=== PATIENT | female | born 1990 | race African-American/Black ===

== ENCOUNTER 2016-11-22 21:57 | Emergency (ER) | payer OTHER ==
[~2016-11-22 21:57] MED LIST: DICLEGIS DR 101 EACH PO; KETOROLAC TROME10 M1 PO; PERCOCET 5-3251 EACH PO; TYLENOL WITH C1 EACH PO; VITAFOL ULTRA1 EACH PO
[2016-11-22 22:02] VITALS: BP 122/73
--- NOTE | 2016-11-22 23:01 | ED UPPER/LOWER EXTREMITY COMPL ---
History of Present Illness General Chief Complaint: Lower Extremity Problems Stated Complaint: BILATERAL LEG PAIN-8 MONTHS PREG Source: patient Exam Limitations: no limitations Allergies Coded Allergies: venom-honey bee (BEE VENOM (HONEY BEE)) (SWELLING AT STINGER SITE 03/09/16) Reconcile Medications Doxylamine/Pyridoxine HCl (Diclegis Dr 10-10 MG Tablet) 10 MG-10 MG TABLET.DR 2 TAB PO QHS PRN N/V (Reported) Iron Carb,Gl/FA/B12/C/Docusate (Ferralet 90 Tablet) 90 MG-1 MG-12 MCG-120 MG-50 MG TABLET 1 TAB PO DAILY PPRENATAL (Reported) Pnv#67/Iron Ps/FA Cmb#1/Dha (Vitafol Ultra Softgel) 29 MG IRON-1 MG-200 MG CAPSULE 1 CAP PO DAILY (Reported) Triage Note: PER PT BILAT THIGH PAIN X 24 HRS CANT SLEEP FEELS LIKE MUSCLE PAIN, Triage Nurses Notes Reviewed? yes : Yes Patient currently breastfeeds: No HPI: This patient is a 26-year-old female who is approximately 8 months gestation who presented to the emergency department today for 1 day of bilateral thigh pain. She reported, "it feels like it is muscular." She reported the pain gets up to an 8 out of 10, is throbbing, and nonradiating. She denied any back pain or calf pain. She denied any unilateral leg swelling. The patient denied any difficulty breathing or chest pain. Her PAYROLL MACHINE OPERATOR is Dr. Mendez. The patient did not try taking any medication for her pain prior to arrival in the emergency department. (RAQUEL HOLBROOK,YOLANDA) Vital Signs & Intake/Output Vital Signs & Intake/Output Vital Signs Date Time Temp Pulse Resp B/P Pulse O2 O2 Flow FiO2 Ox Delivery Rate 11/22 2202 93 18 122/73 99 ED Intake and Output 11/23 0000 11/22 1200 Intake Total 50 Output Total Balance 50 Intake, IV 50 Past History Travel History Traveled to [place] past 21 day No Medical History Any Pertinent Medical History? 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 No (YOLANDA GARCÍA PA-C) Review of Systems Review of Systems Constitutional: Reports: no symptoms. EENTM: Reports: no symptoms. Respiratory: Reports: no symptoms. Cardiovascular: Reports: no symptoms. Gastrointestinal/Abdominal: Reports: no symptoms. Genitourinary: Reports: no symptoms. Musculoskeletal: Reports: see HPI. Neurological/Psychological: Reports: no symptoms. All Other Systems: Reviewed and Negative (YOLANDA GARCÍA PA-C) Physical Exam Physical Exam General Appearance: well developed/nourished, no apparent distress, alert, awake Comments: Well-developed well-nourished person in no acute distress HEENT: Normal EENT exam, head normocephalic, moist mucous membranes Neck: Supple Back: No CVA tenderness. Normal gait Respiratory: No respiratory distress. Speaking in full sentences Abdomen: Gravid with palpable uterus just below the xiphoid process. Nontender Bilateral lower extremities: No bony or muscular deformities appreciated. No edema. No calf tenderness. Negative Homans sign. Dorsalis pedis and posterior tibialis pulses 2+ and strong. Tenderness to palpation over the quadriceps bilaterally Neuro: Alert oriented x3, cranial nerves II through XII grossly intact. Skin: No appreciable rash on exposed skin, skin is warm and dry. Psych: Mood and affect is normal (YOLANDA GARCÍA PA-C) Progress Differential Diagnosis: arterial insufficiency, cellulitis, compartment syndrome , contusion, dislocation, DVT, septic arthritis, sprain, tendon injury, MUSCLE STRAIN Plan of Care: Current Medications Sig/Giovana Start time Last Medication Dose Stop Time Status Admin Acetaminophen 1,000 MG ONCE ONE 11/22 2300 UNVr (Ofirmev) 11/22 2314 N/A 1 UNIT (No Carrier) Departure Departure Disposition: HOME OR SELF CARE Condition: Stable Clinical Impression Primary Impression: Musculoskeletal pain Referrals: JODIE VALDEZ,BRIDGER Puente (PCP/Family) Additional Instructions: Please take [id number] Tylenol as needed for pain. Rest. Gentle stretching. Apply ice or heat to the affected areas as needed. Please follow- up with your PAYROLL MACHINE OPERATOR. Return for any worsening symptoms or concerns. Departure Forms: Customer Survey General Discharge Information (YOLANDA GARCÍA PA-C) PA/WEARING APPAREL SHAKER Co-Sign Statement Statement: ED Attending supervision documentation- [] I saw and evaluated the patient. I have also reviewed all the pertinent lab results and diagnostic results. I agree with the findings and the plan of care as documented in the PA's/WEARING APPAREL SHAKER's documentation. [X] I have reviewed the ED Record and agree with the PA's/WEARING APPAREL SHAKER's documentation. [] Additions or exceptions (if any) to the PAs/WEARING APPAREL SHAKER's note and plan are summarized below: [] (JORI VALDEZ,REMA Rush)
[2016-11-22] MEDS ORDERED: FERRALET 90 TA1 EACH PO (23:30)
== END 2016-11-22 23:31 ==
LOC: ERH 21:57
DX: O26.93 Pregnancy related conditions, unspecified, third trimester (principal); M79.651 Pain in right thigh; M79.652 Pain in left thigh
CPT/HCPCS: 96374; J0131

== ENCOUNTER 2016-12-29 08:44 | Inpatient (IN) | payer OTHER ==
[~2016-12-29] VITALS: Ht 172.7 cm; Wt 68.0 kg
[~2016-12-29 08:44] MED LIST changes: +FERRALET 90 TA1 EACH PO
[2016-12-29 09:57] LABS: ABSOLUTE BASOPHIL COUNT 0 /CUMM (0.0-0.2); ABSOLUTE EOSINOPHIL COUNT 0.1 /CUMM (0.0-0.7); ABSOLUTE GRANULOCYTE CT 5.6 /CUMM (1.4-6.5); ABSOLUTE LYMPH COUNT 1.4 /CUMM (1.2-3.4); ABSOLUTE MONOCYTE COUNT 0.5 /CUMM (0.10-0.60); BASOPHIL % 0.4 % (0.0-2.0); EOSINOPHIL % 1.2 % (0-5); GRANULOCYTE % 73.4 % (42.2-75.2); HEMATOCRIT 35.9 % (37-47); MEAN CORPUSCULAR HGB 32.3 PG (27.0-31.0); MEAN CORPUSCULAR HGB CONC 33.3 G/DL (33.0-37.0); MEAN CORPUSCULAR VOLUME 96.9 FL (81.0-99.0); MEAN PLATELET VOLUME 9.6 FL (7.4-10.4); PLATELET COUNT 197 /CUMM (130-400); RBC DISTRIBUTION WIDTH 14.1 % (11.5-14.5); WHITE BLOOD CELL COUNT 7.6 /CUMM (4.8-10.8)
--- NOTE | 2016-12-29 11:57 | PN- Obstetrical ---
Subjective Subjective: NO COMPLAINTS Objective Last 24 Hrs of Vital Signs/I&O Intake & Output 12/29 1600 04/ 0800 04/ 0000 Intake Total Output Total Balance Patient 150 lb Weight Physical Exam: ABD 3100 Obstetric Exam Dilation (cm): 2 Effacement (%): 90 Station: 0 Membranes: AROM Fluid: clear Multiple Gestation? No Contractions: Q 5 Assessment/Plan Assessment/Plan ASSESS SGA PLAN CONT PITOCIN
--- NOTE | 2016-12-29 14:39 | PN- Obstetrical ---
Subjective Subjective: C/O CTX Objective Last 24 Hrs of Vital Signs/I&O Intake & Output 12/29 1600 12/29 0800 12/29 0000 Intake Total Output Total Balance Patient 150 lb Weight Physical Exam: PE PLEASANT BF IN NAD ABD 3100 EFW Obstetric Exam Dilation (cm): 3 Effacement (%): 90 Station: 0 Membranes: AROM Fluid: light meconium Multiple Gestation? No Contractions: Q 2 MINUTES Assessment/Plan Assessment/Plan ASSESS SGA PLAN [facility] ATTEMPTED
[2016-12-30] MEDS ORDERED: PERCOCET 5-3251 EACH PO (09:40)
[2016-12-30] MEDS ORDERED: IBUPROFEN800 M1 PO (09:40)
[2016-12-30 10:01] LABS: ABSOLUTE BASOPHIL COUNT 0 /CUMM (0.0-0.2); ABSOLUTE EOSINOPHIL COUNT 0 /CUMM (0.0-0.7); ABSOLUTE GRANULOCYTE CT 11.5 /CUMM (1.4-6.5); BASOPHIL % 0.1 % (0.0-2.0); EOSINOPHIL % 0.1 % (0-5)
[2016-12-30 10:12] LABS: ABSOLUTE LYMPH COUNT 1.1 /CUMM (1.2-3.4); ABSOLUTE MONOCYTE COUNT 0.7 /CUMM (0.10-0.60); HEMATOCRIT 32.3 % (37-47); MEAN CORPUSCULAR HGB 32.4 PG (27.0-31.0); MEAN CORPUSCULAR VOLUME 98.5 FL (81.0-99.0); MEAN PLATELET VOLUME 9.7 FL (7.4-10.4); PLATELET COUNT 165 /CUMM (130-400); RBC DISTRIBUTION WIDTH 14.1 % (11.5-14.5); RED BLOOD CELL CT 3.28 /CUMM (4.20-5.40)
[2016-12-30 10:13] LABS: WHITE BLOOD CELL COUNT 13.3 /CUMM (4.8-10.8)
[2016-12-30 10:32] LABS: GRANULOCYTE % 86.3 % (42.2-75.2)
--- NOTE | 2016-12-31 06:42 | PN- Post Delivery/GYN ---
Subjective Subjective: Overall patient doing well. Pain is moderate, however well controlled with PO pain meds. Patient is ambulating well. Voiding well. Passing gas, no BM. Eating well with no N/V. Lochia decreasing per pt. Breast and bottle feeding. Review of Systems: per above Objective Last 24 Hrs of Vital Signs/I&O 97.6 76 17 106/68 98 Physical Exam: NAD RRR S1 and S2 CTAB Abd - minimal tenderness to palpation, good BS Incision - C/D/I, sarah in place. Current Medications: Current Medications Sig/Giovana Start time Last Medication Dose Route Stop Time Status Admin Bisacodyl 10 MG DAILY NEEDED PRN 12/29 1800 AC MA Butorphanol Tartrate 1 MG Q4P PRN 12/29 1445 DC 12/29 IM 1445 Butorphanol Tartrate 1 MG Q4P PRN 12/29 1445 DC 12/29 IV 1441 Diphenhydramine HCl 25 MG Q6P PRN 12/29 1800 AC 12/30 IV 01/01 1801 0408 Docusate Sodium 100 MG .STK-MED ONE 12/30 2130 DC PO 12/30 2131 Docusate Sodium 100 MG AT BEDTIME PRN 12/29 1800 AC 12/30 PO 2137 Enoxaparin Sodium 40 MG DAILY 12/30 1000 DC SC Enoxaparin Sodium 40 MG DAILY 12/30 1000 DC 12/30 SC 0744 Hydroxyzine HCl 50 MG AT BEDTIME NEED.. 12/30 0000 AC PO 01/02 0001 Ibuprofen 800 MG .STK-MED ONE 12/30 2129 DC PO 12/30 2130 Ibuprofen 800 MG .STK-MED ONE 12/30 1411 DC PO 12/30 1412 Ibuprofen 800 MG Q6P PRN 12/29 1800 AC 12/30 PO 2137 Ketorolac 30 MG .STK-MED ONE 12/30 0713 DC Tromethamine IM 12/30 0714 Ketorolac 30 MG Q6P PRN 12/29 1800 DC 12/30 Tromethamine IV 12/30 1759 0738 Lactated Ringer's 1,000 ML Q8H 12/29 1800 AC IV Lactated Ringer's 1,000 ML Q8H 12/29 1000 DC 12/30 IV 0400 Magnesium Hydroxide 30 ML DAILY NEEDED PRN 12/29 1800 AC PO 01/01 1801 Measles/Mumps/ 1 ANDRIA ONE ONE 12/30 0945 DC Rubella Vaccine Live SC 12/30 0946 Metoclopramide HCl 10 MG Q6P PRN 12/29 2330 AC IV Naloxone HCl 0.2 MG DAILY NEEDED PRN 12/29 2330 AC IV Oxycodone/ 1 TAB Q4P PRN 12/29 1800 AC Acetaminophen PO Oxycodone/ 2 TAB Q4P PRN 12/29 1800 AC 12/31 Acetaminophen PO 0318 Oxytocin 30 UNITS PER PROTOCL 12/29 1000 DC 12/29 Lactated Ringer's 500 ML IV 0945 Senna 187 MG AT BEDTIME NEED.. 12/29 1800 AC PO Last 24 Hrs of Labs/Jairon: Laboratory Tests 12/30/16 0806: CBC w Diff NO MAN DIFF REQ, RBC 3.28 L, MCV 98.5, MCH 32.4 H, RDW 14.1, MPV 9.7, Gran % 86.3 H, Lymphocytes % 8.3 L, Monocytes % 5.2, Eosinophils % 0.1, Basophils % 0.1, Absolute Granulocytes 11.5 H, Absolute Lymphocytes 1.1 L, Absolute Monocytes 0.7 H, Absolute Eosinophils 0, Absolute Basophils 0, PUBS MCHC 33.0 Assessment/Plan Assessment/Plan 26 yo female POD#2 s/p LTCS for failed induction Overall doing well Continue pain control with PO meds PRN Regular diet Encourage ambulation Continue to encourage breast feeding. Continue Lovenox and bowel regimen Attending MD Review Statement Attending Statement Attending MD Statement: examined this patient, discussed with nursing
--- NOTE | 2017-01-01 07:36 | PN- Post Delivery/GYN ---
Subjective Subjective: Overall patient doing well. Pain is improving and well controlled with PO pain meds. Patient is ambulating well. Voiding well. Passing gas, no BM. Eating well with no N/V. Lochia decreasing per pt. Breast and bottle feeding. Review of Systems: per above Objective Last 24 Hrs of Vital Signs/I&O 98.6 64 20 100/66 98% Physical Exam: NAD RRR S1 and S@ CTAB Abd: Mild TTP, good BS Incision: C/D/I With sarah in place Ext: NT, minimal edema Current Medications: Current Medications Sig/Giovana Start time Last Medication Dose Route Stop Time Status Admin Bisacodyl 10 MG DAILY NEEDED PRN 12/29 1800 AC WY Diphenhydramine HCl 25 MG Q6P PRN 12/29 1800 AC 12/30 IV 01/01 1801 0408 Docusate Sodium 100 MG .STK-MED ONE 12/31 2004 DC PO 12/31 2006 Docusate Sodium 100 MG AT BEDTIME PRN 12/29 1800 AC 12/31 PO 2012 Hydroxyzine HCl 50 MG AT BEDTIME NEED.. 12/30 0000 AC PO 01/02 0001 Ibuprofen 800 MG .STK-MED ONE 12/31 2004 DC PO 12/31 2006 Ibuprofen 800 MG .STK-MED ONE 12/31 1405 DC PO 12/31 1406 Ibuprofen 800 MG .STK-MED ONE 12/31 0802 DC PO 12/31 0803 Ibuprofen 800 MG Q6P PRN 12/29 1800 AC 01/01 PO 0142 Lactated Ringer's 1,000 ML Q8H 12/29 1800 AC IV Magnesium Hydroxide 30 ML DAILY NEEDED PRN 12/29 1800 AC PO 01/01 1801 Metoclopramide HCl 10 MG Q6P PRN 12/29 2330 AC IV Naloxone HCl 0.2 MG DAILY NEEDED PRN 12/29 2330 AC IV Oxycodone/ 1 TAB Q4P PRN 12/29 1800 AC Acetaminophen PO Oxycodone/ 2 TAB Q4P PRN 12/29 1800 AC 01/01 Acetaminophen PO 0142 Senna 187 MG AT BEDTIME NEED.. 12/29 1800 AC PO Assessment/Plan Assessment/Plan 26 yo female POD#3 s/p LTCS for failed induction Overall doing well Continue pain control with PO meds PRN Regular diet Encourage ambulation Continue to encourage breast feeding supplement with bottle as needed Continue Lovenox and bowel regimen Plan for discharge home today. Patient given precautions and voiced understanding. Attending MD Review Statement Attending Statement Attending MD Statement: examined this patient, discussed with family, discussed with nursing
[2017-01-01] MEDS ORDERED: DOCUSATE SODIU100 M3 PO (07:42)
[2017-01-01] MEDS ORDERED: IBUPROFEN800 M1 PO (07:49)
[2017-01-01] MEDS ORDERED: PERCOCET 5-3251 EACH PO (07:49)
--- NOTE | 2017-01-02 17:57 | Operative Report ---
Operative/Inv Procedure Report Surgery Date: 12/29/16 Name of Procedure: High transverse section via Pfannenstiel skin incision Pre-Operative Diagnosis: Nonreassuring heart tracing small for gestational age failed induction Post-Operative Diagnosis: Same in transverse lie Estimated Blood Loss: 500 Surgeon/Crystal Calibrator: BARRETT VALDEZ,MJ [facility] Anesthesia: block Operative/Procedure Note Note: Patient was taken the operating placed on position after adequate placement of a [place] catheter sterilely I and testing for a spinal narcotic the patient's abdomen was prepped and draped so fashion skin was tested once again to be found to be adequate for surgery through a Pfannenstiel skin incision 2 fingerbreadths of symptoms pubis in the midline skin was cut was carried down to rectus fascia which cut in curvilinear fashion I direction peritoneal cavity entered high into the abdomen at this point the low blade the Kell was placed lower in the incision the lower uterine segment was not developed the was not in transverse position I the bladder flap was developed a transverse incision was made using a knife the uterus was entered with a knife was dissected bluntly as well as sharply using the bandage scissors at this point a version produced a vertex delivered over the incisional on since removed from the field cord was doubly clamped and cut infant was handed chief hospital administrator for resuscitation since was delivered manually noted to be intact was wiped clean with 2 wet dry laps insurance free of adherent membranes was oversewn running locking suture was indicated interrupted [id number] hemostasis uses returned to the abdominal cavity was hemostatic intravenous intramyometrial Pitocin Hemabate had been used for uterine contractility the peritoneum was reapproximated 0 the fascia was reapproximated to continue sutures 1 skin was reapproximated
--- NOTE | 2017-01-12 11:59 | Surgical Discharge Summary ---
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 Maori Review of Systems: -13 point review of systems as stated in the [facility] Hospital Course Course Attending Physician: MJ HYDE MD Primary Care Physician: BRIDGER FELICIANO MD Hospital Course: 26-year-old 4 para 030 at 38 weeks' gestation with a small for gestational age presents for induction of labor secondary to non-patient has been followed in my office and had adequate NSTs but has had a lack of growth in the last 2 week Allergies: Coded Allergies: venom-honey bee (BEE VENOM (HONEY BEE)) (SWELLING AT STINGER SITE 03/09/16) Disposition Summary Disposition Principal Diagnosis: Small for gestational age infant Additional Diagnosis: section Discharge Disposition: home or self care Discharge Instructions General Discharge Information Code Status: Full Code Patient's Diet: Regular Patient's Activity: Pelvic rest low-grade lifting 15 pounds for 6 weeks pelvic rest for 6 weeks no driving for 2 weeks Follow-Up Instructions/Appts: return visit in one week for removal of sarah and a visit in my office in 2 weeks Medications at Discharge Discharge Medications: Stop taking the following medications: Doxylamine/Pyridoxine HCl (Ananth Bennett 10-10 MG Tablet) 10 MG-10 MG TABLET. ORAL TAKE AT BEDTIME as needed for N/V Qty = 40 Continue taking these medications: Pnv#67/Iron Ps/FA Cmb#1/Dha (Vitafol Ultra Softgel) 29 MG IRON-1 MG-200 MG CAPSULE 1 Capsule ORAL DAILY Qty = 30 Comments: PER PT Iron Carb,Gl/FA/B12/C/Docusate (Ferralet 90 Tablet) 90 MG-1 MG-12 MCG-120 MG-50 MG TABLET 1 Tablet ORAL DAILY Qty = 30 Start taking the following new medications: Docusate Sodium (Docusate Sodium) 100 MG CAPSULE 100 Milligram ORAL DAILY as needed for STOOL SOFTENER Qty = 45 No Refills Comments: Last Taken:01/01/17 Time:1937 Ibuprofen (Ibuprofen) 800 MG TABLET 800 Milligram ORAL EVERY SIX HOURS NEEDED as needed for UTERINE CRAMPING Qty = 30 No Refills Comments: Last Taken:01/02/17 Time:939 Oxycodone HCl/Acetaminophen (Percocet 5-325 MG Tablet) 5 MG-325 MG TABLET 1 Tablet ORAL EVERY 4 HOURS NEEDED as needed for PAIN SCALE 4-6 (MODERATE ) Qty = 30 No Refills Comments: Last Taken:01/02/17 Time:0016
== END 2017-01-02 10:45 | DRG 540 ==
LOC: GNO 08:44
PROVIDERS: ADMIT Specialist
PROC: 10D00Z1 Extraction of Products of Conception, Low, Open Approach (ICD-10-PCS; principal; 2016-12-29)
PROC: 3E033VJ Introduction of Other Hormone into Peripheral Vein, Percutaneous Approach (ICD-10-PCS; 2016-12-29)
DX: O32.2XX0 Maternal care for transverse and oblique lie, not applicable or unspecified (principal); O61.0 Failed medical induction of labor; O36.5930 Maternal care for other known or suspected poor fetal growth, third trimester, not applicable or unspecified; O76 Abnormality in fetal heart rate and rhythm complicating labor and delivery; Z3A.39 39 weeks gestation of pregnancy; Z37.0 Single live birth
CPT/HCPCS: GNOS; 81001; 87086; 88307; J0595; J0690; J1200; J1650; J1885; J7120

== ENCOUNTER 2017-01-07 11:08 | Emergency (ER) | payer OTHER ==
[~2017-01-07] VITALS: Ht 172.7 cm; Wt 68.0 kg
[~2017-01-07 11:08] MED LIST changes: +DOCUSATE SODIU100 M3 PO; +IBUPROFEN800 M1 PO
--- NOTE | 2017-01-07 11:31 | ED HEADACHE COMPLAINT ---
History of Present Illness General Chief Complaint: Headache Stated Complaint: HEADACHE Source: patient Exam Limitations: no limitations Vital Signs & Intake/Output Vital Signs & Intake/Output Vital Signs Date Time Temp Pulse Resp B/P Pulse O2 O2 Flow FiO2 Ox Delivery Rate 01/07 1459 98.0 60 20 148/88 98 Room Air Room Air 01/07 1116 98.6 69 20 136/80 98 Room Air Allergies Coded Allergies: venom-honey bee (BEE VENOM (HONEY BEE)) (SWELLING AT STINGER SITE 03/09/16) Reconcile Medications Docusate Sodium 100 MG CAPSULE 100 MG PO DAILY PRN STOOL SOFTENER Ibuprofen 800 MG TABLET 800 MG PO Q6P PRN UTERINE CRAMPING Iron Carb,Gl/FA/B12/C/Docusate (Ferralet 90 Tablet) 90 MG-1 MG-12 MCG-120 MG-50 MG TABLET 1 TAB PO DAILY PPRENATAL (Reported) Oxycodone HCl/Acetaminophen (Percocet 5-325 MG Tablet) 5 MG-325 MG TABLET 1 TAB PO Q4P PRN PAIN SCALE 4-6 (MODERATE) Pnv#67/Iron Ps/FA Cmb#1/Dha (Vitafol Ultra Softgel) 29 MG IRON-1 MG-200 MG CAPSULE 1 CAP PO DAILY (Reported) Triage Note: PT TO ED C/O HEADACHE SINCE YESTERDAY. PT IS S/P 12/29/16 AT [facility]. PT CALLED OBGYN REGARDING HEADACHE, OB ADVISED PT TO TAKE TYLENOL. PT CAME TO ED INSTEAD. Triage Nurses Notes Reviewed? yes : No Patient currently breastfeeds: No HPI: 26 yo F presenting with headache. Intermittent diffuse headaches for the past 2 -3 days, throbbing sensation, gradual onset. Patient is recently status post C- section on 12/29/16, performed "because my pelvis wasn't right," notes elevated blood pressures at visits denies frequency during or history of hypertension. Endorses ongoing bilateral lower external edema since , not worse in the past to several days. Denies fevers, chills, neck stiffness, chest pain, shortness of breath, palpitations, visual changes, or focal neurologic symptoms. (PAULINA VALDEZ,JAVAN) Past History Travel History Traveled to [place] past 21 day No Medical History Any Pertinent Medical History? 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 Yes (JAVAN GALLARDO MD) Review of Systems Review of Systems Constitutional: Reports: no symptoms. Eyes: Denies: blurred vision, photophobia, vision change. Ears, Nose, Throat, Mouth: Reports: no symptoms. Respiratory: Reports: no symptoms. Cardiovascular: Reports: peripheral edema. Denies: chest pain, orthopena, palpitations. Gastrointestinal/Abdominal: Reports: no symptoms. Genitourinary: Reports: no symptoms. Musculoskeletal: Reports: no symptoms. Skin: Reports: no symptoms. Neurological/Psychological: Reports: no symptoms. Hematologic/Endocrine: Reports: no symptoms. Endocrine: Reports: no symptoms. Immunologic/Allergic: Reports: no symptoms. All Other Systems: Reviewed and Negative (JAVAN GALLARDO MD) Physical Exam Physical Exam General Appearance: well developed/nourished, no apparent distress, alert, awake Head: atraumatic Eyes: Bilateral: normal appearance, PERRL, EOMI. Ears, Nose, Throat: normal pharynx, normal ENT inspection Neck: normal inspection, supple, full range of motion Respiratory: normal breath sounds, chest non-tender, no respiratory distress, lungs clear Cardiovascular: regular rate/rhythm, normal peripheral pulses Gastrointestinal: normal bowel sounds, soft, non-tender Back: normal inspection Cranial Nerves: Cr II-XII intact Coordination/Gait: normal finger to nose, normal gait Motor/Sensory: no motor/sensory deficits Comments: Abdomen: Healing lower abdominal transverse scar, nontender to palpation, mild erythema consistent with healing, no purulent discharge Extremities: Mild lower extremity swelling without pitting edema Neurologic: Cranial nerves II through XII intact, visual tao intact, no pronator drift, normal pfvkdr-sdpp-qeudhx and aurr-lj-umhq testing, no motor or sensory deficits Core Measures Severe Sepsis Present: No Septic Shock Present: No (JAVAN GALLARDO MD) Progress Differential Diagnosis: IC mass/tumor, intracranial Hem., meningitis, migraine BOOKER, pre-ecclampsia Plan of Care: Orders Procedure Date/time Status URINALYSIS 01/07 114 Complete HEPATIC FUNCTION PANEL 01/07 114 Complete CBC WITHOUT DIFFERENTIAL 01/07 114 Complete BASIC METABOLIC PANEL 01/07 114 Complete Laboratory Tests 01/07/17 1212: Urine Color STRAW, Urine Clarity CLEAR, Urine pH 6.5, Ur Specific Marsing <= 1.005, Urine Protein NEG, Urine Ketones NEG, Urine Nitrite NEG, Urine Bilirubin NEG, Urine Urobilinogen 0.2, Ur Leukocyte Esterase NEG, Ur Microscopic SEDIMENT EXAMINED, Urine RBC 3-5, Urine WBC RARE, Ur Epithelial Cells FEW, Urine Hemoglobin MOD H, Urine Glucose NEG 01/07/17 1154: Anion Gap 10, Estimated GFR 54 L, BUN/Creatinine Ratio 22.5, Glucose 103 H, Calcium 9.6, Total Bilirubin 0.6, Direct Bilirubin 0.1, AST 22, ALT 36, Alkaline Phosphatase 94, Total Protein 6.4, Albumin 3.3 L, CBC w Diff NO MAN DIFF REQ, RBC 3.56 L, MCV 97.3, MCH 31.8 H, RDW 13.3, MPV 8.2, Gran % 78.4 H, Lymphocytes % 11.5 L, Monocytes % 8.0, Eosinophils % 1.6, Basophils % 0.5, Absolute Granulocytes 5.3, Absolute Lymphocytes 0.8 L, Absolute Monocytes 0.5, Absolute Eosinophils 0.1, Absolute Basophils 0, PUBS MCHC 32.7 L 01/07/17 1141: Urine Total Volume Cancelled, Ur Total Protein 24 Hr Cancelled Physician MDM: 26 yo F recently post- presenting with headache. VSS, BP 136/80, neurologic exam non-focal. DDx: Tension headache, migraine headache, less likely preeclampsia, low concern for intracranial hemorrhage or OPERATOR MAINTAINER mass. Given Reglan, 1 L normal saline with complete resolution of headache. Labs remarkable for mild creatinine increased to 1.2, normal liver function tests. 1 L normal saline given. UA unremarkable, no protein. Plan of care discussed with patient's ORACLE SQL DEVELOPER Dr. Mendez, low concern for preeclampsia reviewing labs and vitals, will see patient for close follow-up in office. Patient discharged with return precautions, Tylenol or ibuprofen for headache, plan for close follow-up with PMD or ORACLE SQL DEVELOPER. Plan of care was discussed with the patient expressed agreement and understanding. (PAULINA VALDEZ,JAVAN) Departure Departure Disposition: HOME OR SELF CARE Condition: Stable Clinical Impression Primary Impression: Headache Qualifiers: Headache type: unspecified Headache chronicity pattern: acute headache Intractability: not intractable Qualified Code: R51 - Headache Referrals: JODIE VALDEZ,BRIDGER Puente (PCP/Family) Additional Instructions: Take Tylenol or ibuprofen for headache. Follow-up with your ORACLE SQL DEVELOPER doctor as scheduled. Return to the ED for any new, worsening, or concerning symptoms. Departure Forms: Customer Survey General Discharge Information (PAULINA VALDEZ,JAVAN) PA/CONSTRUCTION PROJECT COORDINATOR Co-Sign Statement Statement: ED Attending supervision documentation- [] I saw and evaluated the patient. I have also reviewed all the pertinent lab results and diagnostic results. I agree with the findings and the plan of care as documented in the PA's/CONSTRUCTION PROJECT COORDINATOR's documentation. [X] I have reviewed the ED Record and agree with the PA's/CONSTRUCTION PROJECT COORDINATOR's documentation. [] Additions or exceptions (if any) to the PAs/CONSTRUCTION PROJECT COORDINATOR's note and plan are summarized below: [] (JORI VALDEZ,REMA Rush)
[2017-01-07 12:01] LABS: ABSOLUTE BASOPHIL COUNT 0 /CUMM (0.0-0.2); ABSOLUTE EOSINOPHIL COUNT 0.1 /CUMM (0.0-0.7); ABSOLUTE GRANULOCYTE CT 5.3 /CUMM (1.4-6.5); ABSOLUTE LYMPH COUNT 0.8 /CUMM (1.2-3.4); ABSOLUTE MONOCYTE COUNT 0.5 /CUMM (0.10-0.60); BASOPHIL % 0.5 % (0.0-2.0); EOSINOPHIL % 1.6 % (0-5); GRANULOCYTE % 78.4 % (42.2-75.2); HEMATOCRIT 34.6 % (37-47); MEAN CORPUSCULAR HGB 31.8 PG (27.0-31.0); MEAN CORPUSCULAR HGB CONC 32.7 G/DL (33.0-37.0); MEAN CORPUSCULAR VOLUME 97.3 FL (81.0-99.0); MEAN PLATELET VOLUME 8.2 FL (7.4-10.4); PLATELET COUNT 245 /CUMM (130-400); RBC DISTRIBUTION WIDTH 13.3 % (11.5-14.5); RED BLOOD CELL CT 3.56 /CUMM (4.20-5.40); WHITE BLOOD CELL COUNT 6.8 /CUMM (4.8-10.8)
[2017-01-07 14:59] VITALS: BP 148/88
== END 2017-01-07 15:02 ==
LOC: ERH 11:08
PROVIDERS: Student in an Organized Health Care Education/Training Program
DX: R51 Headache (principal); R60.0 Localized edema
CPT/HCPCS: 81001; 82570; 96361; 96374; J2765